=== PATIENT | female | born 1995 | race Caucasian/White ===

== ENCOUNTER 2019-05-30 13:46 | Inpatient (IN) ==
[~2019-05-30 13:46] MED LIST: *HR* Labetalol 20 MG/4 ML SYRINGE IVP ONE; *HR* Labetalol 20 MG/4 ML SYRINGE IVP PRN; *HR* Nalbuphine 10 MG/ML AMPUL IVP PRN; Famotidine 20 MG/2 ML VIAL IVP PRN; Lidocaine 1% 20 ML MDV INFILT PRN; Metoclopramide 10 MG/2 ML VIAL IVP PRN; Naloxone 0.4 MG/ML INJ IVP PRN; Ondansetron 4 MG/2 ML VIAL IVP PRN
[2019-05-30] MEDS ORDERED: *HR* Labetalol 20 MG/4 ML SYRINGE IVP ONE (14:14)
[2019-05-30] MEDS ORDERED: Magnesium Sulf 20gm/LR 500mL 20 GM/500 ML IV.SOLN IVC SCH (14:15)
[2019-05-30 14:16] LABS: Basophils % 0.2 %; Eosinophils % 0.1 %; Hematocrit 37.4 % (35.3-44.9); Hemoglobin 11.8 g/dL (11.5-15.4); Immature Granulocytes % 0.4 % (0-4); Lymphocytes # 1.2 K/mcL (0.6-4.6); Lymphocytes % 12.1 %; Mean Corpuscular HGB Conc 31.6 g/dL (31.6-35.5); Mean Corpuscular Hemoglobin 29.6 pg (28.0-33.3); Mean Corpuscular Volume 93.7 fL (83.0-100.0); Mean Platelet Volume 11.4 fL (9.4-12.4); Monocytes # 0.5 K/mcL (0.0-1.3); Monocytes % 5.1 %; Neutrophils # 7.9 K/mcL (1.6-8.9); Platelet Count 219 K/mcL (140-400); Red Blood Count 3.99 M/mcL (3.82-4.97); Red Cell Distribution Width 14.3 % (11.5-14.5); Segmented Neutrophils % 82.1 %; White Blood Count 9.6 K/mcL (4.3-11.1)
[2019-05-30] MEDS: Ringers Solution, Lactated 1,000 ML IVC SCH (14:33)
[2019-05-30 14:39] LABS: Alanine Aminotransferase 15 Units/L (7-52); Aspartate Amino Transferase 21 Units/L (13-39); BUN/Creatinine Ratio 20 (6-26); Blood Urea Nitrogen 13 mg/dL (6-20); Lactate Dehydrogenase 187 Units/L (140-271); Uric Acid 4.8 mg/dL (2.3-7.6); eGFR For African Americans > 60 (> 60); eGFR For Non-African Americans > 60 (> 60)
[2019-05-30] MEDS ORDERED: NIFEdipine 10 MG CAPSULE PO ONE (14:45)
[2019-05-30] MEDS ORDERED: EPHEDrine 50 MG/ML VIAL IVP PRN (17:08)
[2019-05-30] MEDS ORDERED: Epidural Premix (fent/bupiv) 110 ML EP SCH (17:15)
[2019-05-30] MEDS ORDERED: miSOPROStoL 25 MCG TABLET PO PRN (17:17)
[2019-05-30] MEDS ORDERED: *HR* Morphine Sulfate/PF 10 MG/10 ML AMPUL ONE (18:13)
[2019-05-30] MEDS ORDERED: *HR* FentaNYL (PF) 100 MCG/2 ML VIAL ONE (18:13)
[2019-05-30] MEDS ORDERED: *HR* Oxytocin 10 UNIT/ML VIAL IM ONE ×2 (18:15→19:23)
[2019-05-30] MEDS ORDERED: Ringers Solution, Lactated 1,000 ML ONE ×2 (18:43→19:23)
[2019-05-30] MEDS ORDERED: Azithromycin 500 MG in 0.9 % Sodium Chloride 250 ML IVPB SCH (19:00)
[2019-05-30] MEDS ORDERED: Ibuprofen 400 MG TABLET PO PRN (19:02)
[2019-05-30] MEDS ORDERED: *HR* OxyCODONE/APAP 5/325 TABLET PO PRN (19:02)
[2019-05-30] MEDS ORDERED: Morphine Sulfate 2 MG/ML SYRINGE IVP PRN (19:02)
[2019-05-30] MEDS ORDERED: Acetaminophen IV 1,000 MG/100 ML INFUS..BTL IVPB ONE (19:03)
[2019-05-30] MEDS ORDERED: Ondansetron 4 MG/2 ML VIAL ONE (19:46)
[2019-05-30] MEDS ORDERED: Magnesium Sulf 20 gm/SW 500mL 20 GM/500 ML IV.SOLN IVC SCH (20:00)
[2019-05-30] MEDS ORDERED: Oxytocin 20 units/ LR 1000 mL 20 UNIT/1,000 ML BAG IVC ONE (20:39)
[2019-05-30] MEDS ORDERED: Ondansetron 4 MG/2 ML VIAL IVP PRN (22:39)
[2019-05-30] MEDS ORDERED: Sennosides 8.6 MG TABLET PO PRN (22:39)
[2019-05-30] MEDS ORDERED: Rho Immune Globulin 1,500 UNIT SYRINGE IM ONE (22:39)
[2019-05-30] MEDS ORDERED: Simethicone 80 MG TAB.CHEW PO PRN (22:39)
[2019-05-30] MEDS ORDERED: *HR* OxyCODONE Immed Rel 5 MG TABLET PO PRN (22:39)
[2019-05-30] MEDS ORDERED: Calcium Gluconate 1,000 MG/10 ML VIAL ONE (22:40)
[2019-05-31] MEDS: Ibuprofen 600 MG TABLET PO SCH ×4 (00:38→18:04)
[2019-05-31] MEDS ORDERED: Magnesium Sulf 20gm/LR 500mL 20 GM/500 ML IV.SOLN IV SCH (03:00)
[2019-05-31] MEDS: Oxytocin 20 units/ LR 1000 mL 20 UNIT/1,000 ML BAG IVC SCH ×3 (03:12→14:31)
[2019-05-31] MEDS ORDERED: RINGERS LACTATED IVC PRN (03:49)
[2019-05-31] MEDS ORDERED: Magnesium Sulf 20gm/LR 500mL 20 GM/500 ML IV.SOLN IVC SCH (04:00)
[2019-05-31 04:34] LABS: Basophils % 0.3 %; Hematocrit 32.9 % (35.3-44.9); Immature Granulocytes % 0.3 % (0-4); Lymphocytes # 1.1 K/mcL (0.6-4.6); Lymphocytes % 11.7 %; Mean Corpuscular HGB Conc 33.4 g/dL (31.6-35.5); Mean Corpuscular Hemoglobin 30.1 pg (28.0-33.3); Mean Corpuscular Volume 89.9 fL (83.0-100.0); Mean Platelet Volume 11.2 fL (9.4-12.4); Monocytes # 0.4 K/mcL (0.0-1.3); Monocytes % 4.5 %; Neutrophils # 7.9 K/mcL (1.6-8.9); Platelet Count 199 K/mcL (140-400); Red Blood Count 3.66 M/mcL (3.82-4.97); Red Cell Distribution Width 14.3 % (11.5-14.5); Segmented Neutrophils % 83.2 %; White Blood Count 9.5 K/mcL (4.3-11.1)
[2019-05-31 04:53] LABS: Alanine Aminotransferase 13 Units/L (7-52); Aspartate Amino Transferase 21 Units/L (13-39); BUN/Creatinine Ratio 15 (6-26); Blood Urea Nitrogen 10 mg/dL (6-20); Lactate Dehydrogenase 203 Units/L (140-271); Uric Acid 4.9 mg/dL (2.3-7.6); eGFR For African Americans > 60 (> 60); eGFR For Non-African Americans > 60 (> 60)
[2019-05-31] MEDS: Acetaminophen 325 MG TABLET PO SCH ×3 (05:39→18:03)
[2019-05-31] MEDS: Ringers Solution, Lactated 1,000 ML IVC SCH (07:29)
[2019-05-31] MEDS: Prenatal Vit/FA 1 EACH TABLET PO SCH (08:15)
[2019-06-01] MEDS: Ibuprofen 600 MG TABLET PO SCH ×4 (00:08→21:23)
[2019-06-01] MEDS: Acetaminophen 325 MG TABLET PO SCH ×5 (00:08→23:42)
[2019-06-01 15:32] LABS: Basophils % 0.2 %; Eosinophils % 0.1 %; Hematocrit 29.4 % (35.3-44.9); Immature Granulocytes % 0.8 % (0-4); Lymphocytes # 1.2 K/mcL (0.6-4.6); Lymphocytes % 12.6 %; Mean Corpuscular Hemoglobin 30.4 pg (28.0-33.3); Mean Corpuscular Volume 95.1 fL (83.0-100.0); Monocytes # 0.5 K/mcL (0.0-1.3); Monocytes % 5.3 %; Neutrophils # 7.9 K/mcL (1.6-8.9); Platelet Count 188 K/mcL (140-400); Red Blood Count 3.09 M/mcL (3.82-4.97); Red Cell Distribution Width 15.1 % (11.5-14.5); White Blood Count 9.8 K/mcL (4.3-11.1)
[2019-06-01 15:37] LABS: Hemoglobin 9.4 g/dL (11.5-15.4)
[2019-06-01 15:48] LABS: Alanine Aminotransferase 11 Units/L (7-52); Aspartate Amino Transferase 18 Units/L (13-39); BUN/Creatinine Ratio 14 (6-26); Blood Urea Nitrogen 11 mg/dL (6-20); Lactate Dehydrogenase 188 Units/L (140-271); Uric Acid 4.6 mg/dL (2.3-7.6); eGFR For African Americans > 60 (> 60); eGFR For Non-African Americans > 60 (> 60)
[2019-06-02] MEDS: Ibuprofen 600 MG TABLET PO SCH (07:50)
[2019-06-02] MEDS: Prenatal Vit/FA 1 EACH TABLET PO SCH ×2 (07:51)
[2019-06-02] MEDS ORDERED: NIFEdipine XL (24 HR) 30 MG TAB.ER.24 PO SCH (09:15)
[2019-06-03 07:29] VITALS: BP 116/68
== END 2019-06-02 14:37 | disposition home or self-care (01) | DRG 787 ==
LOC: 1NENULAB → 1NENUOBS 22:40
PROVIDERS: ADMIT Advanced Practice Midwife; ATTEND Advanced Practice Midwife